=== PATIENT | female | born 1985 | race African-American/Black ===

== ENCOUNTER 2025-02-06 18:36 | Outpatient (REF) | payer MEDICAID, SELFPAY ==
--- OUTSIDE RECORDS SUMMARY | 2025-02-06 14:30 | XMS_ITS | Encounter Summary ---
Author Organization [facility] Address [address] [place] [address] Care Team Providers Care Gasoline Service Attendant Name Role Phone Bran Richter Primary Care Provider [phone] Reason for Referral * Imaging (Routine) - Pending Review Specialty Diagnoses / Procedures Referred By Johanna randle Referred To Contact Radiology Diagnoses Cyst of left ovary Vaginal burning Vaginal discharge Procedures Us Pelvis complete Bran Richter FNP [address] [place] [address] Phone: tel: fax: Referral ID Status Reason Start Date Expiration Date V isits Requested Visits Authorized [id number] Pending Review 02/06/2025 02/06/2026 1 1 * Consultation (Routine) - Pending Review Specialty Diagnoses / Procedures Referred By Johanna randle Referred To Contact Optometry Diagnoses [facility] Bran Richter FNP [address] [place] [address] Phone: tel: fax: Referral ID Status Reason Start Date Expiration Date Visits Requested Visits Authorized [id number] Pending Review Specialty Services Required 02/06/2026 1 1 * Consultation (Routine) - Authorized Specialty Diagnoses / Procedures Referred By Johanna t Referred To Contact Dental Music Autographer / Dentistry Diagnoses [facility] Bran Richter FNP [address] [place] [address] Phone: tel: fax: Referral ID Status Reason Start Date Expiration Date Visits Requested Visits Authorized [id number] Authorized Specialty Services Required 02/06/2026 1 1 Encounter Details Date Type Department Care Team ([facility] st Contact Info) Description 02/06/2025 2:30 PM EDT Office Visit [facility] [address] [place] [address] Bran Richter FNP [address] [place] [address] Diabetes mellitus screening (Primary Dx); Health care maintenance; Cyst of left ovary; Vaginal burning; Vaginal discharge; Boils of multiple sites; Dietary counseling; Exercise counseling; Class 1 obesity with body mass index (BMI) of 30.0 to 30.9 in adult, unspecified obesity type, unspecified whether serious comorbidity present; Anemia, unspecified type; Burning with urination Social History Tobacco Use Types Packs/Day Years Used Date Smoking Tobacco: Never Passive Smoke Exposure: Never Smokeless Tobacco: Never Tobacco Cessation:Counseling Given: Not Answered Alcohol Use Standard Drinks/Week Comments Never 0 (1 standard drink = 0.6 oz pur e alcohol) Depression Answer Date Recorded Patient Health Questionnaire-9 Score 0 02/06/2025 Patient Health Questionnaire-9 Score 0 02/06/2025 Last PHQ-9: Questionnaire Data Not on file 1 Housing Stability Answer Date Recorded What is your housing situation today? I have mason russell 02/06/[address] you li ve. Do you have problems with any of the following? None of the above 02/06/2025 Food Insecurity Answer Date Recorded Within the past 12 months, y ou worried that your food would run out before you got money to buy more: Never True 02/06/2025 Within the past 12 months,th e food you bought just didn't last and you didn't have enough money to get more: Never True Transportation Answer Date Recorded In the past 12 months, has l ack of transportation kept you from medical appts, meetings, work or from getting things needed for daily living? No 02/06/2025 Utilities Answer Date Recorded In the past 12 months, has t he electric, gas, oil or water company threatened to shut off services in your home? No 02/06/2025 Depression Answer Date Recorded Patient Health Questionnaire-2 Score 0 02/06/2025 Internet Access Answer Date Recorded Internet Access Q1 No 02/06/2025 Internet Access Q2 I do not want or need it 01/17 Comments No Sex and Gender Information Value Date Recorded Sex Assigned at Female 01/16/2025 12:39 PM EDT Legal Sex Female 2:11 AM EDT Gender Identity Female 02/06/2025 2:32 PM EDT Sexual Orientation Straight 02/06/2025 2: 32 PM EDT documented as of this encounter Last Filed Vital Signs Vital Sign Reading Time Taken Comments Blood Pressure 122/89 02/06/2025 2:43 PM EDT Pulse 93 02/06/2025 2:43 PM EDT Temperature 37.1 C (98.7 F) 02/06/2025 2:43 PM EDT Respiratory Rate 17 02/06/2025 2:43 PM EDT Oxygen Saturation 98% 02/06/2025 2:43 PM EDT Inhaled Oxygen Concentration - - Weight 71.8 kg (158 lb 3.2 oz) 02/06/2025 2:43 P M EDT Height 152.4 cm (5') 02/06/2025 2:43 PM EDT Body Mass Index 30.9 02/06/2025 2:43 PM EDT documented in this encounter Functional Status * Over the past 2 weeks, how often have you been bothered by any of the following problems? Question Answer Date of Assessment Author Patient Health Questionnaire -2 Score 0 02/06/2025 4:20 PM EDT Kendal Wolf MA * Little interest or pleasure in doing things Answer Date of Assessment Author Not at all 02/06/2025 4:20 PM EDT Oliver Wolf MA * Feeling down, depressed, or hopeless Answer Date of Assessment Author Not at all 02/06/2025 4:20 PM EDT Oliver Wolf MA * Trouble falling or staying asleep, or sleeping too much Answer Date of Assessment Author Not at all 02/06/2025 4:20 PM EDT Oliver Wolf MA * Feeling tired or having little energy Answer Date of Assessment Author Not at all 02/06/2025 4:20 PM EDT Oliver Wolf MA * Poor appetite or overeating Answer Date of Assessment Author Not at all 02/06/2025 4:20 PM EDT Oliver Wolf MA * Feeling bad about yourself - or that you are a failure or have let yourself or your family down Answer Date of Assessment Author Not at all 02/06/2025 4:20 PM EDT Oliver Wolf MA * Trouble concentrating on things, such as reading the newspaper or watching television Answer Date of Assessment Author Not at all 02/06/2025 4:20 PM EDT Oliver Wolf MA * Moving or speaking so slowly that other people could have noticed? Or the opposite - being so fidgety or restless that you have been moving around a lot more than usual. Answer Date of Assessment Author Not at all 02/06/2025 4:20 PM EDOliver Garcia MA * Thoughts that you would be better off or hurting yourself in some way Answer Date of Assessment Author Not at all 02/06/2025 4:20 PM EDT Oliver Wolf MA * Patient Health Questionnaire-9 Score Answer Date of Assessment Author 0 02/06/2025 4:20 PM CONSTANCET Oliver Wolf MA * Over the last 2 weeks, how often have you been bothered by any of the following problems? Question Answer Date of Assessment Author Feeling nervous, anxious, or on edge 0 02/06/2025 4:19 PM EDT Kendal Wolf MA Not being able to stop or co ntrol worrying 0 02/06/2025 4:19 PM CONSTANCET Kendal Wolf MA Worrying too much about diff erent things 0 02/06/2025 4:19 PM CONSTANCET Kendal Wolf MA Trouble relaxing 0 02/06/2025 4:19 PM EDT Kendal Rangel MA Being so restless that it is hard to sit still 0 02/06/2025 4:19 PM EDT Kendal Wolf MA Becoming easily annoyed or irritable 0 02/06/2025 4:19 PM Kendal Wilson MA Feeling afraid as if somethi ng awful might happen 0 02/06/2025 4:19 PM Kendal Wilson MA GWYN-7 Total Score 0 02/06/2025 4:19 PM Kendal Wilson MA documented as of this encounter Plan of Treatment Upcoming Encounters Date Type Department Care Team (Late st Contact Info) Description 02/27/2025 10:15 AM EST Procedure Visit [facility] [address] [place], [place] [phone] Bran Richter FNP [address] [place], [place] [phone] Scheduled Orders Name Type Priority Associated Diagnoses Orde r Schedule Hemoglobin A1c Lab Routine Diabetes mellitus screening Expected: 02/06/2025 (Approximate), Expires: 02/06/2026 Bacterial Vaginosis Panel Microbiology Routine Vaginal burning Vaginal discharge Burning with urination Ordered: 02/06/2025 Hepatitis B Core Antibody, Total Lab Routine Health care maintenance Expected: 02/06/2025 (Approximate), Expires: 02/06/2026 Hepatitis B Surface Antibody, Qualitative Lab Routine Health care maintenance Expected: 02/06/2025 (Approximate), Expires: 02/06/2026 Hepatitis B surface antigen, EIA Lab Routine Health care maintenance Expected: 02/06/2025 (Approximate), Expires: 02/06/2026 Hepatitis C Antibody with Reflex to HCV, RNA, Quantitative, Real-Time PCR Lab Routine Health care maintenance Expected: 02/06/2025, Expires: 02/06/2026 HIV-1/2 Antigen and Antibodies, Fourth Generation, with Reflexes Lab Routine Health care maintenance Expected: 02/06/2025 (Approximate), Expires: 02/06/2026 Syphilis Screen Lab Routine Health care maintenance Expected: 02/06/2025, Expires: 02/06/2026 Culture, Urine, Routine Microbiology Routine Vaginal burning Burning with urination Ordered: 02/06/2025 Us Pelvis complete Imaging Routine Cyst of left ovary Vaginal burning Vaginal discharge Expected: 03/09/2025, Expires: 02/06/2026 Chlamydia/N. Gonorrhoeae RNA, TMA, Vaginal Microbiology Routine Vaginal burning Vaginal discharge Ordered: 02/06/2025 Iron And Total Iron Binding Capacity Lab Routine Anemia, unspecified type Expected: 02/06/2025, Expires: 02/06/2026 Ferritin Lab Routine Anemia, unspecified type Expected: 02/06/2025, Expires: 02/06/2026 Hemoglobin Electrophoresis Lab Routine Anemia, unspecified type Expected: 02/06/2025 (Approximate), Expires: 02/06/2026 Scheduled Referrals Name Type Priority Associated Diagnoses Orde r Schedule Referral to Dentistry, Internal Outpatient Referral Routine Health care maintenance Expected: 02/06/2025 (Approximate), Expires: 02/06/2026 Referral to Optometry Outpatient Referral Routine Health care maintenance Expected: 02/06/2025 (Approximate), Expires: 02/06/2026 documented as of this encounter Procedures Procedure Name Priority Date/Time Associated Diagnosis Comments POCT URINALYSIS DIPSTICK Routine 02/06/2025 4:18 PM EDT Vaginal burning Burning with urination documented in this encounter Results * (ABNORMAL) POCT Urinalysis (02/06/2025 4:18 PM EDT) Color, UA Yellow Clarity, UA Clear Glucose, UA Negative Bilirubin, UA Negative Ketones, UA Negative Spec Grav, UA 1.020 Blood, UA Positive(A) Negative, None Detected Comment:trace-intact pH, UA 6.5 Protein, UA Negative Urobilinogen, UA 0.2 Leukocytes, UA Trace Negative, Rare, Trace Nitrite, UA Negative Negative, None Detected Appearance, UA yellow QC Media Lot # [id number] Lot# Expiration Date [id number] Urine (Urine, Random) 02/06/2025 4:18 PM EDT us Bran TORO POINT OF CARE TEST ENTER/EDIT ORDERABLES Final Result documented in this encounter Visit Diagnoses Diagnosis Diabetes mellitus screening- Primary Screening for diabetes mellitus Health care maintenance Cyst of left ovary Other and unspecified ovarian cyst Vaginal burning Other specified symptom associated with female genital organs Vaginal discharge Leukorrhea, not specified as infective Boils of multiple sites Dietary counseling Dietary surveillance and counseling Exercise counseling Class 1 obesity with body mass index (BMI) of 30.0 to 30.9 in adult, unspecified obesity type, unspecified whether serious comorbidity present Anemia, unspecified type Burning with urination Dysuria documented in this encounter Additional Health Concerns Assessment Noted Time PHQ-9 Depression Total Score: 0 02/07/20 4:20 PM EDT documented as of this encounter Care Teams Gasoline Service Attendant Relationship Specialty Start Date End Date Brna Richter FNP [address] [place] [id number] PCP - General Family Medicine 02/06/25 documented as of this encounter
--- OUTSIDE RECORDS SUMMARY | 2025-02-06 22:20 | XMS_ITS | Encounter Summary ---
Author Organization [employer] Address [address] [place] [address] Care Team Providers Care Inspector Mechanical Name Role Phone Bran Richter CORTEZ Primary Care Provider [phone] Encounter Details Date Type Department Care Team (Latest Contact Info) Description 02/06/2025 Travel Social History Tobacco Use Types Packs/Day Years Used Date Smoking Tobacco: Never Passive Smoke Exposure: Never Smokeless Tobacco: Never Alcohol Use Standard Drinks/Week Comments Never 0 [...] PM EDT documented as of this encounter Functional Status * Over the [...] Author Not at all 02/06/2025 4:20 PM Oliver Wilson MA * Moving or speaking so slowly that other people could have noticed? Or the opposite - being so fidgety or restless that you have been moving around a lot more than usual. Answer Date of Assessment Author Not at all 02/06/2025 4:20 PM EDT Oliver Wolf MA * Thoughts that you would be better off or hurting yourself in some way Answer Date of Assessment Author Not at all 02/06/2025 4:20 PM EDT Oliver Wolf MA * Patient Health Questionnaire-9 Score Answer Date of Assessment Author 0 02/06/2025 4:20 PM EDT Oliver Wolf MA * Over the last 2 weeks, how often have you been bothered by any of the following problems? Question Answer Date of Assessment Author Feeling nervous, anxious, or on edge 0 02/06/2025 4:19 PM EDT Kendal Wolf MA Not being able to stop or co ntrol worrying 0 02/06/2025 4:19 PM EDT Kendal Wolf MA Worrying too much about diff erent things 0 02/06/2025 4:19 PM EDT Kendal Wolf MA Trouble relaxing 0 02/06/2025 4:19 PM EDT Kendal Rangel MA Being so restless that it is hard to sit still 0 02/06/2025 4:19 PM EDT Kendal Wolf MA Becoming easily annoyed or irritable 0 02/06/2025 4:19 PM EDT Kendal Wolf MA Feeling afraid as if somethi ng awful might happen 0 02/06/2025 4:19 PM EDT Kendal Wolf MA GWYN-7 Total Score 0 02/06/2025 4:19 PM EDT Kendal Wolf MA documented as of this encounter Plan of Treatment Upcoming Encounters Date Type Department Care Team (Late st Contact Info) Description 02/27/2025 10:15 AM EST Procedure Visit [facility] [address] [place] [address] Bran Richter FNP [address] [place] [address] documented as of this encounter Visit Diagnoses Not on filedocumented in this encounter Additional Health Concerns Assessment Noted Time PHQ-9 Depression Total Score: 0 02/07/20 25 4:20 PM EDT documented as of this encounter Care Teams Inspector Mechanical Relationship Specialty Start Date End Date Bran Richter FNP [address] [place] [address] PCP - General Family Medicine 02/06/25 documented as of this encounter
--- OUTSIDE RECORDS SUMMARY | 2025-02-06 22:20 | XMS_ITS | Encounter Summary ---
Author Organization [employer] [facility] Address [address] [facility] 7[address] [place] [address] Care Team Providers Care Web Services Professional Name Role Phone Unavailable Primary Care Provider Unavailabl e Reason for Visit * Reason Onset Date Comments Chart Prep 02/05/2025 Encounter Details Date Type Department Care Team (Late st Contact Info) Description 02/05/2025 Telephone [facility] [address] [place] [address] Emily Amos FNP [address] [place] [address] Chart Prep Social History Tobacco Use Types Packs/Day Years Used Date Smoking Tobacco: Never Assessed Depression Answer Date Recorded Patient Health Questionnaire-9 [...] not want or need it 01/17 Comments Unknown Sex and Gender Information Value Date Recorded Sex Assigned at Female 01/16/2025 12:39 PM EDT Legal Sex Female 2:11 AM EDT Gender Identity Female 02/06/2025 2:32 PM EDT Sexual Orientation Straight 02/06/2025 2: 32 PM EDT documented as of this encounter Miscellaneous Notes * Telephone Encounter - Kendal Wolf MA - 02/05/2025 1:24 PM EDT Chart Prep Labs: done Images: done Referrals: not applicable Vaccines due: Covid, Flu, Hep B, and HPV Screenings: pap smearAlcohol/Substance Use Screening Overdue care gaps: SBIRT, SDOH, PHQ-9, GWYN-7, Oral health screening, Disability screen, and Tobacco documented in this encounter Plan of Treatment Upcoming Encounters Date Type Department Care Team (Late st Contact Info) Description 02/27/2025 10:15 AM EST Procedure Visit [facility] [address] [place] [address] Bran Richter FNP [address] [place] [address] documented as of this encounter Visit Diagnoses Not on filedocumented in this encounter
--- OUTSIDE RECORDS SUMMARY | 2025-02-06 22:20 | XMS_ITS | Encounter Summary ---
Demographics Address [address] [facility] [address] [place] [address] Mobile Phone Home Phone Email Address Preferred Language Unknown Marital Status Unknown Rastafarian Affiliation Unknown Race Other Race Ethnic Group Unknown Author Organization [employer] Address [address] [facility] [address] [place] [address] Care Team Providers Care Lombardi Developer Name Role Phone Unavailable Primary Care Provider Unavailabl e Encounter Details Date Type Department Care Team ([facility] st Contact Info) Description 02/05/2025 Population Health Risk Score [facility] (C3) Department [address] [facility] [address] [place] [phone] Provider, Population Health Generic Social History Tobacco Use Types Packs/Day Years [...] PM EDT documented as of this encounter Plan of Treatment Upcoming Encounters Date Type Department Care Team (Late st Contact Info) Description 02/27/2025 10:15 AM EST Procedure Visit [facility] [address] [place] [address] Bran Richter FNP [address] [place], [place] [phone] documented as of this encounter Visit Diagnoses Not on filedocumented in this encounter
--- OUTSIDE RECORDS SUMMARY | 2025-02-06 22:20 | XMS_ITS | Clinical Summary ---
Demographics Address [address] [facility] [address] [place] [address] Mobile Phone Home Phone Email Address Preferred Language Unknown Marital Status Unknown Oriental Orthodox Affiliation Unknown Race Other Race Ethnic Group Unknown Author Organization [facility] Address [address] [facility] [address] [place] [address] Care Team Providers Care Assistant Plant Manager Name Role Phone Bran Richter Primary Care Provider [phone] Allergies No known active allergies Medications doxycycline (Vibra-Tabs) 100 MG tabletIndicatio ns:Boils of multiple sites Take 1 tablet (100 mg) by mouth 2 times daily for 7 days. Take with a full glass of water and do not lie down for at least 30 minutes after. 14 tablet 02/06/2025 Active Encounters Date Type Department Care Team Description 02/06/2025 2:30 PM EDT Office Visit [facility] [address] [place], [place] [phone] Bran Richter FNP Diabetes mellitus screening (Primary Dx); Health care maintenance; Cyst of left ovary; Vaginal burning; Vaginal discharge; Boils of multiple sites; Dietary counseling; Exercise counseling; Class 1 obesity with body mass index (BMI) of 30.0 to 30.9 in adult, unspecified obesity type, unspecified whether serious comorbidity present; Anemia, unspecified type; Burning with urination 02/06/2025 Travel 02/05/2025 Telephone [facility] [address] [place] [address] Emily Amos FNP Chart Prep 02/05/2025 Population Health Risk Score [facility] () Department [address] [phone] Provider, Population Health Generic 01/30/2025 Patient Outreach [facility] [address] [place] [address] Richter, Bran, MEAT PRODUCTS DEMONSTRATOR Pre-visit Planning (SDOH will need to be completed in office. ) from Last 3 Months Immunizations Immunization Administration Dates Next Due Influenza, seasonal, injectable, preservative fr ee 03/23/2024 Tdap 05/25/2024 Social History Tobacco Use Types Packs/Day Years [...] Orientation Straight 02/06/2025 2: 32 PM EDT Last Filed Vital Signs Vital Sign Reading [...] Mass Index 30.9 02/06/2025 2:43 PM EDT Plan of Treatment Upcoming Encounters Date Type Department Care Team (Late st Contact Info) Description 02/27/2025 10:15 AM EST Procedure Visit [facility] [address] [place], [place] [phone] Bran Richter FNP [address] [place], [place] [phone] Health Maintenance Due Date Last Done Comments Lipid Panel 1983 Family Planning (PISQ) 1998 HPV Vaccines (1 - 3-dose series) 1998 Hepatitis B Vaccines (1 of 3 - 19+ 3-dose series) 2002 Pap Smear 01/13/2004 Cervical Cancer Screening 2013 HPV/Cotest 2013 COVID-19 Vaccine (1 - 2023-2 5 season) 2024 Influenza Vaccine (#1) 2024 03/23/2024 Alcohol/Substance Use Screening 02/06/2026 02/06/2025 Depression Screening 02/06/2026 02/06/2025, 02/06/2025 Disability Screening 02/06/2026 02/06/2025 SDOH Screening 02/06/2026 02/06/2025 Tobacco Screening 02/06/2026 02/06/2025 Mammogram 07/19/2026 07/19/2024, 07/19/2024 Zoster Vaccines (1 of 2) 2033 DTaP/Tdap/Td Vaccines (2 - T d or Tdap) 05/25/2034 05/25/2024 RSV Patients and Patients Aged 60 years or older (1 - 1-dose 75+ series) 2058 HIB Vaccines Aged Out No longer eligi ble based on patient's age to complete this topic HIV Screening Discontinued Hepatitis A Vaccines Aged Out No long er eligible based on patient's age to complete this topic Hepatitis C Screening Discontinued IPV Vaccines Aged Out No longer eligi ble based on patient's age to complete this topic Meningococcal B Vaccine Aged Out No l onger eligible based on patient's age to complete this topic Meningococcal Vaccine Aged Out No tawanda sammie eligible based on patient's age to complete this topic Pneumococcal Vaccine: Pediatrics (0 to 5 Years) and At-Risk Patients (6 to 49) Years Aged Out No longer eligible based on patient's age to complete this topic RSV under 20 months Aged Out No longe r eligible based on patient's age to complete this topic Rotavirus Vaccines Aged Out No longer eligible based on patient's age to complete this topic Procedures Procedure Name Priority Date/Time Associated Diagnosis Comments POCT URINALYSIS DIPSTICK Routine 02/06/2025 4:18 PM EDT Vaginal burning Burning with urination from Last 3 Months Results * (ABNORMAL) POCT Urinalysis (02/06/2025 4:18 [...] Media Lot # [id number] Lot# Expiration Date [id number] Urine (Urine, Random) 02/06/2025 4:18 PM EDT Bran Richter MEAT PRODUCTS DEMONSTRATOR POINT OF CARE TEST ENTER/EDIT ORDERABLES Final Result from Last 3 Months Insurance [address] [address] [facility] C3 Care Teams Assistant Plant Manager Relationship Specialty Start Date End Date Bran Richter FNP [address] [place] [phone] PCP - General Family Medicine 02/06/25
--- OUTSIDE RECORDS SUMMARY | 2025-02-06 22:20 | XMS_ITS | Clinical Summary ---
Author Organization [facility] Address [address] [place] [phone] Phone Care Team Providers Care Beater Tender Name Role Phone Physician, No Pcp Primary Care Provider Unavaila ble Allergies No known active allergies Medications No known medications Active Problems No known active problems Social History Tobacco Use Types Packs/Day Years Used Date Smoking Tobacco: Never Assessed Comments Unknown Sex and Gender Information Value Date Recorded Sex Assigned at Female 07/06/2024 12:42 PM EDT Legal Sex Female 10:15 AM EDT Gender Identity Female 07/06/2024 12:42 PM EDT Sexual Orientation Straight 07/06/2024 12 :42 PM EDT Obstetrics History Last Filed Vital Signs Vital Sign Reading Time Taken Comments Blood Pressure 102/68 07/06/2024 4:56 PM EDT Pulse 81 07/06/2024 4:56 PM EDT Temperature 37.1 C (98.8 F) 07/06/2024 4:56 PM EDT Respiratory Rate 18 07/06/2024 4:56 PM EDT Oxygen Saturation 99% 07/06/2024 4:56 PM EDT Inhaled Oxygen Concentration - - Weight 81.6 kg (180 lb) 07/06/2024 10:25 AM EDT Height 157.5 cm (5' 2 ) 07/06/2024 10:25 AM EDT Body Mass Index 32.92 07/06/2024 10:25 AM EDT Plan of Treatment Health Maintenance Due Date Last Done Comments Breast Cancer Screening 1983 Hepatitis B Vaccines (1 of 3 - 19+ 3-dose series) 2002 Cervical Cancer Screening: P ap Smear 01/13/2004 HPV Vaccines (1 - 3-dose SCD M series) 2010 Depression Screening 04/18/2024 HIV Screening 07/06/2024 Hepatitis C Screening 07/06/2024 Social Influencers of Health Screening 07/06/2024 COVID-19 Vaccine (1 - 2023-2 5 season) 2024 Influenza Vaccine (#1) 2024 03/23/2024 DTaP,Tdap,and Td Vaccines (2 - Td or Tdap) 05/25/2034 05/25/2024 RSV Immunization Adult Patie nts (1 - 1-dose 75+ series) 2058 HIB Vaccines Aged Out No longer eligi ble based on patient's age to complete this topic Hepatitis A Vaccines Aged Out No long er eligible based on patient's age to complete this topic IPV Vaccines Aged Out No longer eligi ble based on patient's age to complete this topic MMR Vaccines Aged Out No longer eligi ble based on patient's age to complete this topic Meningococcal ACWY Vaccine Aged Out N o longer eligible based on patient's age to complete this topic Meningococcal B Vaccine Aged Out No l onger eligible based on patient's age to complete this topic Pneumococcal Vaccine: Pediat rics (0 to 5 Years) and At-Risk Patients (6 to 49 Years) Aged Out No longer eligi ble based on patient's age to complete this topic RSV Immunization Patients Un bernardo 20 months Aged Out No longer eligible b ased on patient's age to complete this topic Varicella Vaccines Aged Out No longer eligible based on patient's age to complete this topic Insurance [place] - [place] [facility] PLAN Care Teams Beater Tender Relationship Specialty Start Date End Date Physician, No Pcp PCP - General 07/06/24
[2025-02-07 05:38] LABS: Bacterial Vaginosis PCR POSITIVE (Negative); Candida Group PCR DETECTED (Not Detect); Candida glab krusei PCR NOT DETECTED (Not Detect); Trichomonas vaginalis PCR NOT DETECTED (Not Detect)
[2025-02-07 06:08] LABS: CT PCR NOT DETECTED (Not Detect.); NG PCR NOT DETECTED (Not Detect.)
== END 2025-02-06 18:37 | disposition home or self-care (01) ==
LOC: HO.HHCLNP 18:36
DX: N94.89 Other specified conditions associated with female genital organs and menstrual cycle (principal); Z20.2 Contact with and (suspected) exposure to infections with a predominantly sexual mode of transmission
CPT/HCPCS: 81515; 87086; 87088; 87186; 87491; 87591

== ENCOUNTER 2025-02-07 09:22 | Outpatient (REF) | payer MEDICAID, SELFPAY ==
--- OUTSIDE RECORDS SUMMARY | 2025-02-07 10:29 | XMS_ITS | Clinical Summary ---
Author Organization [facility] Address [address] [place] [phone] Phone Care Team Providers Care Data Processing Manager Name Role Phone Physician, No Pcp Primary [...] complete this topic Insurance [place] - [place] [facility] PL[facility] Care Teams Data Processing Manager Relationship Specialty Start Date End Date Physician, No Pcp PCP - General 07/06/24
[2025-02-07 12:07] LABS: Anion Gap 11 (12-20); Blood Urea Nitrogen 8 mg/dL (9-16); Calcium 9.0 mg/dL (8.4-10.2); Carbon Dioxide 24 mmol/L (22-29); Chloride 110 mmol/L (96-108); Estimated Glomerular Filt Rate > 60; Iron 92 mcg/dL (30-160); Percent Iron Saturation 35 % (15-50); Potassium 3.7 mmol/L (3.3-5.1); Sodium 141 mmol/L (135-145); Total Iron Binding Capacity 262 mcg/dL (228-428); Unsaturated Iron Binding 170 ug/dL
[2025-02-07 12:08] LABS: Syphilis Screen Nonreactive (Nonreactive)
[2025-02-07 12:16] LABS: Ferritin 120 ng/mL (10-250)
[2025-02-07 12:17] LABS: HBc Num1 0.08 S/CO (0.00-0.79); HBsAGNum1 0.38 S/CO (0.00-0.99); HIV Num 1 0.04 S/CO (0.00-0.99); Hepatitis B Surface Antigen Negative (Negative); ~HepC Num1 0.11 S/CO (0.00-0.79); ~Hepatitis C Antibody Nonreactive (Nonreactive)
[2025-02-07 12:30] LABS: HBS Num1 2.43 mIU/mL (0-7.99); ~Hepatitis B Surface Antibody NONREACTIVE (Nonreactive)
[2025-02-12 12:04] LABS: Hematocrit 42.2 % (35.0-45.0); Hemoglobin 13.0 g/dL (11.7-15.5); MCH 22.8 pg (27.0-33.0); MCV 74.0 fL (80.0-100.0); RBC 5.70 Million/uL (3.80-5.10); RDW 14.5 % (11.0-15.0)
== END 2025-02-07 09:23 | disposition home or self-care (01) ==
LOC: HO.HHCL 09:22
DX: Z00.00 Encounter for general adult medical examination without abnormal findings (principal); Z13.1 Encounter for screening for diabetes mellitus; Z11.4 Encounter for screening for human immunodeficiency virus [HIV]; Z11.59 Encounter for screening for other viral diseases; Z20.2 Contact with and (suspected) exposure to infections with a predominantly sexual mode of transmission; D64.9 Anemia, unspecified
CPT/HCPCS: 36415; 80048; 82728; 83020; 83036; 83540; 85014; 85018; 85041; 86704; 86706; 86780; 86803; 87340; 87389